=== PATIENT | female | born 1935 | race Caucasian/White ===

== ENCOUNTER → 2020-03-22 08:27 | Outpatient (CLI) | payer MEDICARE, SELFPAY ==
[2020-03-22 09:28] LABS: Amphetamine Urine VISTA NEGATIVE (<1000 ng/mL); Barbiturate Urine VISTA NEGATIVE (< 200 ng/mL); Benzodiazepine Urine VISTA NEGATIVE (< 200 ng/mL); Cocaine Urine VISTA NEGATIVE (< 300 ng/mL); Ecstacy Urine VISTA NEGATIVE (< 500 ng/mL); Methadone Urine VISTA NEGATIVE (< 300 ng/mL); PCP Urine VISTA NEGATIVE (< 25 ng/mL); THC Urine VISTA NEGATIVE (< 50 ng/mL); Vista UDS pH Range 7
== END ==
PROVIDERS: Referring Provider Anesthesiology; Visit Provider Anesthesiology
DX: F11.20 Opioid dependence, uncomplicated (principal)
CPT/HCPCS: 80307

== ENCOUNTER → 2020-04-21 10:57 | Outpatient (CLI) | payer MEDICARE, OTHER, SELFPAY ==
--- NOTE | 2020-04-21 11:03 | RAD_ITS ---
STUDY: X-RAY - THORACIC SPINE REASON FOR EXAM: Female, 84 years old. chronic mid back pain TECHNIQUE: 4 view(s) of the thoracic spine were obtained. COMPARISON: None. FINDINGS: Marked right scoliosis centered at approximately T8. LOCKETT angle measured at the inferior endplates of T12 and C4 61.8 degrees. No apparent fracture or acute osseous abnormality. 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 Coronary artery stents. RAD/Thoracic Spine Min 4 Views IMPRESSION: Marked right thoracic spine scoliosis. 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 Electronically Signed: Shin Garzon, at 22:49 EDT Tel , Service support ,
--- NOTE | 2020-04-21 11:05 | RAD_ITS ---
STUDY: X-RAY - LUMBAR SPINE REASON FOR EXAM: Female, 84 years old. Low back pain. TECHNIQUE: 4 view(s) of the lumbar spine were obtained. COMPARISON: None FINDINGS: Marked left scoliosis centered at L3. LOCKETT angle 70.4 degrees measured at the inferior endplates of T12 and L4. No evidence of acute fracture. No osseous destruction. Sagittal alignment near-anatomic. No acute soft tissue abnormality. Dense calcific atherosclerosis. 2.4 cm diameter rounded calcification to the left of midline in the upper abdomen probably an aneurysm, vessel of origin difficult to determine. RAD/L/S Spine Min 4 Views IMPRESSION: No acute osseous abnormality. Marked left scoliosis centered at L3. 2.4 cm diameter rounded calcification to the left of midline in the upper abdomen probably an aneurysm, vessel of origin difficult to determine. Electronically Signed: Shin Garzon, at 22:47 EDT Tel , Service support ,
== END ==
PROVIDERS: PCP Internal Medicine; Referring Provider Anesthesiology; Visit Provider Anesthesiology
DX: M54.6 Pain in thoracic spine (principal); M54.5 Low back pain
CPT/HCPCS: 72074; 72110

== ENCOUNTER → 2020-05-04 09:40 | Outpatient (CLI) | payer MEDICARE, OTHER, SELFPAY ==
--- NOTE | 2020-05-04 09:44 | RAD_ITS ---
STUDY: X-RAY - LEFT KNEE REASON FOR EXAM: Female, 84 years old. CHRONIC KNEE PAIN, NO INJURY TECHNIQUE: 4 view(s) of the knee. COMPARISON: None. FINDINGS: Normal visualized distal femur. Normal visualized proximal tibia and fibula. Normal proximal tibiofibular articulation. Normal medial femorotibial compartment. Normal lateral femorotibial compartment. Normal patellofemoral articulation. The soft tissue structures are unremarkable. RAD/Knee 4 or More Views IMPRESSION: Normal x-ray examination of the knee. Electronically Signed: Bharat Bean, at 10:07 EDT , Service support ,
--- NOTE | 2020-05-04 09:44 | RAD_ITS ---
STUDY: X-RAY - RIGHT KNEE REASON FOR EXAM: Female, 84 years old. CHRONIC KNEE PAIN, NO INJURY TECHNIQUE: 4 view(s) of the knee. COMPARISON: None. FINDINGS: There is demineralization of the visualized distal femur. Normal visualized proximal tibia and fibula. Normal proximal tibiofibular articulation. There is mild degenerative arthrosis of the medial femorotibial compartment. Normal lateral femorotibial compartment. Normal patellofemoral articulation. There is enthesopathy at the quadriceps insertion. The quadriceps insertion is mildly thickened. The soft tissue structures are unremarkable. RAD/Knee 4 or More Views IMPRESSION: The thickened appearance of the quadriceps insertion. Cannot entirely exclude age-indeterminate injury. There is enthesopathy. Mild degenerative change. No visualized acute fracture. Electronically Signed: Lana Roper MD at 5:14 EDT Tel , Service support ,
== END ==
PROVIDERS: PCP Internal Medicine; Referring Provider Anesthesiology; Visit Provider Anesthesiology
DX: M25.561 Pain in right knee (principal); M25.562 Pain in left knee
CPT/HCPCS: 73564

== ENCOUNTER → 2020-05-27 10:42 | Outpatient (CLI) | payer MEDICARE, SELFPAY ==
[2020-05-27 10:52] LABS: Mucous, Urine 0 SEEN /hpf (<or=2+); Red Blood Cells-Urine 0 SEEN /hpf (0-5)
[2020-05-27 10:53] LABS: Color, Urine Yellow (Yellow); Glucose, Dipstick Normal (Normal); Ketone-Dipstick Negative (Negative); Leukocyte Esterase-Dipstick 500 /ul (Negative); Nitrite-Dipstick Negative (Negative); Occult Blood-Urine 10 /ul (Negative); Protein-Dipstick 30 mg/dl (Negative); Specific Gravity, Urine 1.015 (1.002-1.030); Urine Bilirubin Dipstick Negative (Negative); Urine Clarity Sl. Cloudy (Clear); Urine Urobilinogen 1 mg/dl (Normal)
[2020-05-27 10:59] LABS: Bacteria 1+ /hpf (None Seen); Squamous Epithelial Cells - UA 0-5 SEEN /hpf (5-10); White Blood Cells 25-50 SEEN /hpf (0-5)
== END | disposition home or self-care (01) ==
PROVIDERS: PCP Internal Medicine; Referring Provider Nurse Practitioner Adult Health; Visit Provider Nurse Practitioner Adult Health
CPT/HCPCS: 81001